=== PATIENT | male | born 1990 | race African-American/Black ===

== ENCOUNTER 2018-12-29 19:47 | Observation (INO) ==
[2018-12-29] MEDS ORDERED: DOCUSATE SODIUM 100 MG CAPSULE PO PRN (21:46)
[2018-12-29] MEDS ORDERED: ONDANSETRON 4 MG/2 ML VIAL IV PRN (21:46)
[2018-12-29] MEDS ORDERED: ZALEPLON 5 MG CAPSULE PO PRN (21:46)
[2018-12-29] MEDS ORDERED: ACETAMINOPHEN 325 MG TABLET PO PRN (21:46)
[2018-12-29] MEDS ORDERED: ENOXAPARIN 40 MG/0.4 ML SYRINGE SUBCUT SCH (22:00)
[2018-12-29] MEDS ORDERED: ALBUTEROL 2.5 MG/3 ML NEB RESP TX PRN (22:11)
[2018-12-29] MEDS: FUROSEMIDE 40 MG/4 ML VIAL IV SCH (23:33)
[2018-12-29] MEDS: LEVOFLOXACIN INJ 750 MG in PREMIX 1 EACH IV SCH (23:34)
[2018-12-29] MEDS: OSELTAMIVIR 75 MG CAPSULE PO SCH (23:38)
[2018-12-30 04:23] LABS: ABG Base Excess 3.7 MMOL/L (-2.5-2.5); ABG HCO3 27.5 MMOL/L (20-26); ABG Oxygen Saturation 85.8 % (95-100); ABG PCO2 47.8 MM HG (35-48); ABG PH 7.398 (7.35-7.45); ABG PO2 61.1 MM HG (80-95); ABG TCO2 25.9 MMOL/L (23-27); Allen Test Positive; Pt O2 Delivery Device Room Air
[2018-12-30] MEDS ORDERED: ENOXAPARIN 100 MG/ML SYRINGE SUBCUT ONE (07:00)
[2018-12-30 07:04] LABS: Basophils # 0.1 10*3/uL (0.0-0.2); Basophils % 0.2 % (0.0-0.8); Eosinophils # 0.1 10*3/uL (0.0-0.87); Eosinophils % 0.4 % (0.00-10.9); Hematocrit 39.4 VOL% (42.0-52.0); Immature Granulocytes % 0.8 %; Immature Granulocytes Absolute 0.17 #; Lymphocytes # 1.3 10*3/uL (1.4-4.0); Lymphocytes % 5.9 % (21.2-54.2); Mean Corpuscular HGB Conc 30.5 GM/DL (32-36); Mean Corpuscular Volume 90.8 FL (87-102); Monocytes % 8.9 % (1.7-12.7); Neutrophils % 83.8 % (38.7-73.9); Platelet Count 245 T/CUMM (130-400); Red Blood Count 4.34 MC/CUMM (3.8-5.5); White Blood Count 21.9 T/CUMM (4-12)
[2018-12-30 07:33] LABS: Lymphocytes 2 % (20-55); Platelet Estimate Adequate; Segmented Neutrophils 91 % (50-85); Total Cells Counted 100
[2018-12-30 07:34] LABS: Hypochromasia 1+
[2018-12-30 07:43] LABS: Calcium 8.7 MG/DL (8.5-10.1); Osmolality,Calculated 279.4 MOS/KG (273-304); Risk Ratio 5.6; Thyroid Stimulating Hormone 1.24 uIU/ml (0.358-3.74); VLDL CHOLESTEROL 27.8 MG/DL
[2018-12-30] MEDS ORDERED: ENOXAPARIN 40 MG/0.4 ML SYRINGE SUBCUT SCH (09:30)
[2018-12-30] MEDS: OSELTAMIVIR 75 MG CAPSULE PO SCH ×2 (09:31→21:46)
[2018-12-30] MEDS: PANTOPRAZOLE 40 MG TABLET PO SCH (09:31)
[2018-12-30] MEDS: FUROSEMIDE 40 MG/4 ML VIAL IV SCH ×2 (09:32→21:00)
[2018-12-30] MEDS: BUDESONIDE/FORMOTEROL 160-4.5 INHALER 6 GM INH SCH ×3 (09:35→21:46)
[2018-12-30] MEDS: metFORMIN 500 MG TABLET PO SCH (09:35)
[2018-12-31] MEDS: LEVOFLOXACIN INJ 750 MG in PREMIX 1 EACH IV SCH (02:51)
[2018-12-31 05:30] LABS: Basophils % 0.3 % (0.0-0.8); Eosinophils # 0.3 10*3/uL (0.0-0.87); Eosinophils % 2.7 % (0.00-10.9); Hemoglobin 11.9 GM/DL (14.0-18.0); Immature Granulocytes % 0.9 %; Immature Granulocytes Absolute 0.08 #; Lymphocytes # 1.6 10*3/uL (1.4-4.0); Lymphocytes % 17.6 % (21.2-54.2); Mean Corpuscular HGB Conc 30.5 GM/DL (32-36); Mean Corpuscular Volume 89.7 FL (87-102); Mean Platelet Volume 9.7 FL (9.6-12.0); Monocytes % 14.1 % (1.7-12.7); Neutrophils % 64.4 % (38.7-73.9); Platelet Count 248 T/CUMM (130-400); Red Blood Count 4.35 MC/CUMM (3.8-5.5); Red Cell Distribution Width 14.6 % (9.3-17.3); White Blood Count 9.2 T/CUMM (4-12)
[2018-12-31] MEDS ORDERED: ENOXAPARIN 40 MG/0.4 ML SYRINGE SUBCUT SCH (09:30)
[2018-12-31] MEDS: OSELTAMIVIR 75 MG CAPSULE PO SCH (09:39)
[2018-12-31] MEDS: metFORMIN 500 MG TABLET PO SCH (09:40)
[2018-12-31] MEDS: PANTOPRAZOLE 40 MG TABLET PO SCH (09:40)
[2018-12-31] MEDS: FUROSEMIDE 40 MG/4 ML VIAL IV SCH (09:44)
[2018-12-31] MEDS: BUDESONIDE/FORMOTEROL 160-4.5 INHALER 6 GM INH SCH (09:49)
[2018-12-31 12:00] VITALS: BP 132/76
== END 2018-12-31 15:00 | disposition home or self-care (01) ==
LOC: N.TELEN 21:16 → INTOOBSV 21:16 → SUATTDRO 21:46
PROVIDERS: ADMIT Internal Medicine; ATTEND Internal Medicine Cardiovascular Disease

== ENCOUNTER 2019-05-18 11:52 | Observation (INO) ==
[2019-05-18] MEDS ORDERED: ONDANSETRON 4 MG/2 ML VIAL IV PRN (16:06)
[2019-05-18] MEDS ORDERED: ACETAMINOPHEN 325 MG TABLET PO PRN (16:06)
[2019-05-18] MEDS ORDERED: BENZONATATE 100 MG CAPSULE PO PRN (17:42)
[2019-05-18] MEDS: IPRATROPIUM 0.06% NASAL SPRAY 15 ML BOTTLE BOTH NARES SCH ×2 (18:03→22:13)
[2019-05-19] MEDS: IPRATROPIUM 0.06% NASAL SPRAY 15 ML BOTTLE BOTH NARES SCH ×2 (05:30→10:15)
[2019-05-19 08:11] VITALS: BP 134/68
[2019-05-19] MEDS ORDERED: PANTOPRAZOLE 40 MG TABLET PO SCH (09:00)
[2019-05-19] MEDS ORDERED: INFLUENZA VIRUS VACCINE 0.5 ML SYRINGE IM ONE (09:42)
== END 2019-05-19 11:35 | disposition home or self-care (01) ==
LOC: N.TELES 14:01 → INTOOBSV 14:01
PROVIDERS: ADMIT Internal Medicine; ATTEND Internal Medicine Geriatric Medicine

== ENCOUNTER 2020-03-13 02:03 | Inpatient (IN) ==
[2020-03-13] MEDS ORDERED: DOCUSATE SODIUM 100 MG CAPSULE PO PRN (04:21)
[2020-03-13] MEDS ORDERED: MORPHINE 4 MG/1 ML VIAL IV PRN (04:21)
[2020-03-13] MEDS ORDERED: ONDANSETRON 4 MG/2 ML VIAL IV PRN (04:21)
[2020-03-13] MEDS ORDERED: hydrALAZINE 20 MG/1 ML VIAL IV PRN (04:21)
[2020-03-13] MEDS ORDERED: ALBUTEROL/IPRATROPIUM 3 ML NEB RESP TX PRN (04:28)
[2020-03-13] MEDS ORDERED: MAGNESIUM SULF RIDER 4 GM in PREMIX 1 EACH IV PRN (04:34)
[2020-03-13] MEDS ORDERED: POTASSIUM CHLORIDE 20 MEQ TABLET PO PRN (04:34)
[2020-03-13] MEDS ORDERED: MAGNESIUM SULF RIDER 2 GM in PREMIX 1 EACH IV PRN (04:34)
[2020-03-13] MEDS ORDERED: BENZONATATE 100 MG CAPSULE PO PRN (04:40)
[2020-03-13] MEDS ORDERED: AZITHROMYCIN INJ 500 MG in SODIUM CHLORIDE 0.9% 250 ML IV SCH (05:00)
[2020-03-13] MEDS ORDERED: NICOTINE 21 MG/24 HR PATCH TRANSDERM PRN (05:20)
[2020-03-13 05:36] LABS: Albumin 2.7 G/DL (3.4-5.0); Bilirubin,Total 1.4 MG/DL (0.2-1.0); Calcium 8.6 MG/DL (8.5-10.1); Osmolality,Calculated 273.7 MOS/KG (273-304); Risk Ratio 4.24; Thyroid Stimulating Hormone 0.718 uIU/ml (0.358-3.74); Total Protein 7.9 G/DL (6.4-8.3); VLDL CHOLESTEROL 12.2 MG/DL
[2020-03-13 06:57] LABS: Basophils # 0.1 10*3/uL (0.0-0.2); Basophils % 0.2 % (0.0-0.8); Hematocrit 38.8 VOL% (42.0-52.0); Hemoglobin 12.2 GM/DL (14.0-18.0); Immature Granulocytes % 1.5 %; Immature Granulocytes Absolute 0.55 #; Lymphocytes % 2.7 % (21.2-54.2); Mean Corpuscular HGB Conc 31.4 GM/DL (32-36); Mean Corpuscular Volume 88.6 FL (87-102); Monocytes % 3.4 % (1.7-12.7); Neutrophils % 92.2 % (38.7-73.9); Platelet Count 278 T/CUMM (130-400); Red Blood Count 4.38 MC/CUMM (3.8-5.5); Red Cell Distribution Width 15.8 % (9.3-17.3); White Blood Count 37.6 T/CUMM (4-12)
[2020-03-13 07:17] LABS: Band Neutrophils 2 % (0-10); Hypochromasia 1+; Lymphocytes 2 % (20-55); Microcytosis Slight; Platelet Estimate Adequate; Segmented Neutrophils 90 % (50-85); Total Cells Counted 100
[2020-03-13] MEDS ORDERED: ENOXAPARIN 40 MG/0.4 ML SYRINGE SUBCUT SCH (08:00)
[2020-03-13] MEDS: BUDESONIDE/FORMOTEROL 160-4.5 INHALER 6 GM INH SCH ×2 (10:14→20:56)
[2020-03-13] MEDS: cefTRIAXone 1,000 MG in SODIUM CHLORIDE 0.9% 100 ML IV SCH (10:14)
[2020-03-13 10:50] LABS: CKMB % 0.8 %
[2020-03-13] MEDS: ACETAMINOPHEN 325 MG TABLET PO PRN ×2 (10:52→21:12)
[2020-03-13 10:53] LABS: Troponin I 1.02 NG/ML (0.00-0.045)
[2020-03-13] MEDS ORDERED: ASPIRIN 325 MG TABLET PO ONE (11:02)
[2020-03-13 13:31] LABS: CKMB % 0.8 %
[2020-03-13 13:33] LABS: Troponin I 1.35 NG/ML (0.00-0.045)
[2020-03-13] MEDS: ENOXAPARIN 150 MG/ML SYRINGE SUBCUT SCH (13:49)
[2020-03-13] MEDS: METOPROLOL TARTRATE 25 MG TABLET PO SCH (20:55)
[2020-03-13] MEDS: ATORVASTATIN 40 MG TABLET PO SCH (20:56)
[2020-03-14] MEDS: ENOXAPARIN 150 MG/ML SYRINGE SUBCUT SCH (02:03)
[2020-03-14 06:03] LABS: Basophils % 0.2 % (0.0-0.8); Eosinophils # 0.1 10*3/uL (0.0-0.87); Eosinophils % 0.6 % (0.00-10.9); Hematocrit 34.8 VOL% (42.0-52.0); Hemoglobin 10.8 GM/DL (14.0-18.0); Immature Granulocytes % 0.4 %; Immature Granulocytes Absolute 0.06 #; Lymphocytes # 1.4 10*3/uL (1.4-4.0); Mean Platelet Volume 10.5 FL (9.6-12.0); Monocytes % 8.2 % (1.7-12.7); Neutrophils % 81.6 % (38.7-73.9); Platelet Count 255 T/CUMM (130-400); Red Blood Count 3.91 MC/CUMM (3.8-5.5); White Blood Count 15.6 T/CUMM (4-12)
[2020-03-14 07:05] LABS: Osmolality,Calculated 271.7 MOS/KG (273-304)
[2020-03-14 07:42] LABS: Troponin I 0.693 NG/ML (0.00-0.045)
[2020-03-14] MEDS ORDERED: ENOXAPARIN 40 MG/0.4 ML SYRINGE SUBCUT SCH (09:00)
[2020-03-14] MEDS: cefTRIAXone 1,000 MG in SODIUM CHLORIDE 0.9% 100 ML IV SCH (09:11)
[2020-03-14] MEDS: METOPROLOL TARTRATE 25 MG TABLET PO SCH ×2 (09:11→22:04)
[2020-03-14] MEDS: BUDESONIDE/FORMOTEROL 160-4.5 INHALER 6 GM INH SCH ×2 (09:16→22:05)
[2020-03-14] MEDS ORDERED: AZITHROMYCIN INJ 500 MG in SODIUM CHLORIDE 0.9% 250 ML IV ONE (10:30)
[2020-03-14] MEDS: CHOLECALCIFEROL 5,000 UNIT TABLET PO SCH (11:58)
[2020-03-14] MEDS: ENOXAPARIN 40 MG/0.4 ML SYRINGE SUBCUT SCH (11:58)
[2020-03-14] MEDS: ATORVASTATIN 40 MG TABLET PO SCH (22:04)
[2020-03-15] MEDS ORDERED: VANCOMYCIN INJ 3,000 MG in SODIUM CHLORIDE 0.9% 500 ML IV ONE (02:00)
[2020-03-15] MEDS ORDERED: VANCOMYCIN INJ 1,500 MG in SODIUM CHLORIDE 0.9% 500 ML IV SCH (02:00)
[2020-03-15 06:03] LABS: Basophils % 0.3 % (0.0-0.8); Eosinophils # 0.2 10*3/uL (0.0-0.87); Eosinophils % 2.3 % (0.00-10.9); Hematocrit 35.9 VOL% (42.0-52.0); Hemoglobin 11.1 GM/DL (14.0-18.0); Immature Granulocytes % 0.5 %; Immature Granulocytes Absolute 0.05 #; Lymphocytes # 1.7 10*3/uL (1.4-4.0); Lymphocytes % 17.5 % (21.2-54.2); Mean Corpuscular HGB Conc 30.9 GM/DL (32-36); Mean Corpuscular Volume 89.3 FL (87-102); Mean Platelet Volume 10.7 FL (9.6-12.0); Monocytes % 14.9 % (1.7-12.7); Neutrophils % 64.5 % (38.7-73.9); Platelet Count 249 T/CUMM (130-400); Red Blood Count 4.02 MC/CUMM (3.8-5.5); Red Cell Distribution Width 15.9 % (9.3-17.3); White Blood Count 9.7 T/CUMM (4-12)
[2020-03-15 06:23] LABS: Osmolality,Calculated 276.5 MOS/KG (273-304)
[2020-03-15] MEDS ORDERED: AZITHROMYCIN 250 MG TABLET PO SCH (09:00)
[2020-03-15] MEDS: cefTRIAXone 1,000 MG in SODIUM CHLORIDE 0.9% 100 ML IV SCH (10:03)
[2020-03-15] MEDS: CHOLECALCIFEROL 5,000 UNIT TABLET PO SCH (10:06)
[2020-03-15] MEDS: METOPROLOL TARTRATE 25 MG TABLET PO SCH (10:06)
[2020-03-15] MEDS: BUDESONIDE/FORMOTEROL 160-4.5 INHALER 6 GM INH SCH (10:08)
[2020-03-15 11:45] VITALS: BP 163/111
[2020-03-15] MEDS: ENOXAPARIN 40 MG/0.4 ML SYRINGE SUBCUT SCH (12:14)
== END 2020-03-15 13:00 | disposition home or self-care (01) | DRG 871 ==
LOC: EDBD → EDSEX → EDUNIT# → N.ED 02:03 → N.EDINP 04:16 → N.3E 05:51
PROVIDERS: ADMIT Internal Medicine; ATTEND Internal Medicine